=== PATIENT | female | born 1990 | race Caucasian/White ===

== ENCOUNTER 2020-10-27 19:09 | Emergency (ER) | payer OTHER ==
[~2020-10-27 19:09] MED LIST: NAPROSYN500 MG PO; ZOFRAN4 MG PO
[2020-10-27 20:00] LABS: HEMOGLOBIN 12.1 gm/dl (12.3-15.3); RED BLOOD COUNT 4.59 M/UL (4.00-5.10); WHITE BLOOD COUNT 7.4 K/UL (4.5-11.0)
[2020-10-27 20:19] LABS: BUN/CREATININE RATIO 11 (0-10)
== END 2020-10-28 01:00 | disposition home or self-care (01) ==
LOC: ER1 19:09
PROVIDERS: Physician Assistant Medical
DX: K95.09 Other complications of gastric band procedure (principal); Z98.890 Other specified postprocedural states; Z90.49 Acquired absence of other specified parts of digestive tract; Z98.84 Bariatric surgery status; Z98.51 Tubal ligation status
CPT/HCPCS: 80053; 81001; 82150; 83690; 85025; 85652; 86140; 96374; 99284; J2405; Q9967